=== PATIENT | female | born 1985 | race Hispanic/Latino ===

== ENCOUNTER 2017-11-13 11:22 | Day surgery (SDC) | payer BC ==
[~2017-11-13 11:22] MED LIST: NACL 0.9% IR ONE
[2017-11-13 13:05] LABS: Basophils # (Auto) 0.1 K/mm3 (0.0-0.1); Basophils % (Auto) 0.8 % (0.0-1.8); Eosinophils # (Auto) 0.2 K/mm3 (0.0-0.4); Hematocrit 42.6 % (30.3-42.9); Hemoglobin 14.1 gm/dl (10.1-14.3); Lymphocytes # (Auto) 2.4 K/mm3 (1.2-5.4); Lymphocytes % (Auto) 30.1 % (13.4-35.0); Mean Corpuscular HGB Conc 33 % (30-34); Mean Corpuscular Hemoglobin 29 pg (28-32); Mean Corpuscular Volume 87 fl (79-97); Monocytes # (Auto) 0.6 K/mm3 (0.0-0.8); Platelet Count 233 K/mm3 (140-440); Red Blood Count 4.92 M/mm3 (3.65-5.03)
[2017-11-13] MEDS ORDERED: DEMEROL IV PRN (13:09)
[2017-11-13] MEDS ORDERED: ZOFRAN IV PRN (13:09)
[2017-11-13] MEDS ORDERED: ANCEF/STERILE WATER 2 GM/20 ML 2 GM/20 ML SYRINGE IV NR (14:00)
[2017-11-13] MEDS ORDERED: LACTATED RINGERS 1,000 ML IV SCH ×2 (14:00)
[2017-11-13] MEDS ORDERED: VERSED IV NR (14:00)
[2017-11-13] MEDS ORDERED: TRANSDERM-SCOP TD ONE (14:32)
[2017-11-13] MEDS ORDERED: PEPCID IV ONE (14:32)
--- NOTE | 2017-11-13 14:48 | Anesthesia Consultation ---
Anesthesia Consult and Med Hx - Airway Anesthetic Teeth Evaluation: Good ROM Head & Neck: Adequate Mallampati Class: Class I - Pre-Operative Health Status ASA Pre-Surgery Classification: ASA2 Proposed Anesthetic Plan: General - Pulmonary Hx Smoking: Yes (FOR 2 YEARS QUIT 2001) - Central Nervous System Hx Back Pain: Yes Hx Psychiatric Problems: No - Endocrine Hx Renal Disease: Yes (kIDNEY STONES, NEVER TREATED) Hx Liver Disease: Yes (HEP C, TREATED) - Other Systems Hx Alcohol Use: No Hx Substance Use: No Hx Cancer: No Hx Obesity: Yes - Additional Comments Anesthesia Medical History Comments: PONV, MIGRAINES
[2017-11-13] MEDS ORDERED: DIPRIVAN 10 MG/ML IV ONE (15:03)
[2017-11-13] MEDS ORDERED: DECADRON ONE (15:23)
[2017-11-13] MEDS ORDERED: DILAUDID ONE ×3 (15:28→16:00)
[2017-11-13] MEDS ORDERED: NACL 0.9% IR ONE (15:39)
[2017-11-13] MEDS ORDERED: APRESOLINE ONE (15:43)
[2017-11-13] MEDS ORDERED: ZOFRAN ONE (16:18)
[2017-11-13] MEDS ORDERED: NACL 0.9% 1000 ML 1,000 ML ONE (16:44)
[2017-11-13] MEDS: DILAUDID IV PRN ×3 (17:48→18:25)
--- NOTE | 2017-11-13 19:11 | Operative Report ---
PREOPERATIVE DIAGNOSIS: Macromastia. POSTOPERATIVE DIAGNOSIS: Macromastia. PROCEDURE: Bilateral reduction mammoplasty. SURGEON: Corona Dias MD [employer]: Andry Dillard CSA FINDINGS: Right breast 1240 grams removed. Left breast 920 grams removed. DESCRIPTION OF PROCEDURE: The patient was brought to the operating room and placed on the table in supine position. Following administration of general anesthesia, bilateral breasts were prepped with Betadine solution and draped in usual sterile manner. A #10 blade scalpel was used to make a circumareolar skin incision, followed by de-epithelization of inferior dermal pedicle. Modified Matias pattern skin markings were incised with scalpel, deepened through subcutaneous fat and breast tissue using the electrocautery. Skin flaps were raised in standard manner as was fashioning of an inferior central mound pedicle. Breast tissue was resected and sent to pathology as specimen. Hemostasis controlled using electrocautery. Closure was performed over 10 mm LA drains using interrupted and running subcuticular 2-0 Monocryl sutures. Mastisol, Steri-Strips, and sterile dressings applied. The patient tolerated the procedure well and returned to recovery room in stable condition. JOB# [id number] FTW/NTS
--- NOTE | 2017-11-13 19:35 | Post Anesthesia Evaluation ---
- Post Anesthesia Evaluation Patient Participated: Yes Airway Patent: Yes Stable Respiratory Function: Yes Nausea/Vomiting: No Temp > 96.8F: Yes Pain Manageable: Yes Adequeate Hydration: Yes Anesthesia Complications: No
--- NOTE | 2017-11-13 19:35 | Anesthesia Day of Surgery ---
Anesthesia Day of Surgery - Day of Surgery Patient Examined: Yes Patient H&P Reviewed: Yes Patient is NPO: Yes
[2017-11-13 20:04] VITALS: BP 125/71
== END 2017-11-13 19:40 | disposition home or self-care (01) ==
LOC: OR 11:22
PROVIDERS: ATTEND Plastic Surgery
DX: N62 Hypertrophy of breast (principal); N64.89 Other specified disorders of breast; M54.2 Cervicalgia; M25.519 Pain in unspecified shoulder; M54.9 Dorsalgia, unspecified; E65 Localized adiposity; K42.9 Umbilical hernia without obstruction or gangrene; N64.4 Mastodynia; N64.81 Ptosis of breast; M62.08 Separation of muscle (nontraumatic), other site; E66.9 Obesity, unspecified; Z68.37 Body mass index [BMI] 37.0-37.9, adult; Z79.899 Other long term (current) drug therapy; Z98.890 Other specified postprocedural states; Z83.3 Family history of diabetes mellitus; Z82.49 Family history of ischemic heart disease and other diseases of the circulatory system; Z87.891 Personal history of nicotine dependence
CPT/HCPCS: 19318; 36415; 81025; 85025; 88305; J0360; J0690; J1100; J1170; J2250; J2405; J2704; J7030; J7120